=== PATIENT | male | born 1970 | race Caucasian/White ===

== ENCOUNTER 2019-01-27 11:28 | Inpatient (IN) | payer OTHER ==
[2019-01-27 11:58] LABS: #Basophils 0.1 thou/uL (0.0-0.2); #Lymphocytes 1.3 thou/uL (1.20-3.40); #Monocytes 0.9 thou/uL (0.11-0.59); #Neutrophils 14.6 thou/uL (1.40-6.50); %Basophils 0.3 % (0.0-1.0); %Eosinophils 0.2 % (0.0-10.0); %Lymphocytes 7.5 % (21.0-51.0); %Monocytes 5.1 % (0.0-10.0); %Neutrophils 86.9 % (42.0-75.0); Hemoglobin 15.7 g/dL (14.0-18.0); Mean Corpuscular HGB CONC 32.9 g/dL (32.0-36.0); Mean Corpuscular Hemoglobin 28.5 pg (27.0-31.0); Mean Corpuscular Volume 86.4 fL (78.0-98.0); PTT 23.1 SEC (22.9-36.1); Platelet Count 313 thou/uL (130-400); Prothrombin Time 13.2 SEC (12.0-14.7); RBC Distribution Width 11.9 % (11.5-14.5); Red Blood Cell (RBC) Count 5.53 mill/uL (4.70-6.10); White Blood Cell (WBC) Count 16.8 thou/uL (4.8-10.8)
[2019-01-27 12:14] LABS: ALT (SGPT) 42 U/L (8-55); AST (SGOT) 30 U/L (5-34); Albumin 4.1 g/dL (3.5-5.0); Alkaline Phosphatase 81 U/L (40-150); Anion Gap 13 mmol/L (10-20); BUN (Urea Nitrogen) 9 mg/dL (8.9-20.6); Bilirubin, Total 0.7 mg/dL (0.2-1.2); Calc. Creatinine Clearance 0 mL/min (70-130); Calcium 8.9 mg/dL (7.8-10.44); Carbon Dioxide 20 mmol/L (22-29); Chloride 105 mmol/L (98-107); Estimated GFR-MDRD Greater than 90; Globulin 3.1 g/dL (2.4-3.5); Glucose 286 mg/dL (70-105); Potassium 4.6 mmol/L (3.5-5.1); Protein, Total 7.2 g/dL (6.0-8.3); Sodium 133 mmol/L (136-145)
--- NOTE | 2019-01-27 12:25 | CT ---
CT angiogram head CT angiogram neck: 01/27/2019 at 12:01 PM COMPARISON: 01/27/2019 at 10:08 AM HISTORY: Persistent left facial droop and left-sided paralysis following TPA administration TECHNIQUE: Axial CT imaging at 5 mm intervals from vertex through skull base without contrast. Follow ing IV contrast administration, axial CT imaging is obtained at 1.25 mm intervals from the lung apices through the vertex with coronal and sagittal 3-D reformatted imaging FINDINGS: The noncontrast enhanced imaging demonstrates no intracranial hemorrhage, midline shift, or mass effect. The visualized osseous structures demonstrate no acute findings. The imaged lung apices are unremarkable. Origin of the innominate artery, right subclavian artery, right common carotid artery, left common ca rotid artery, and a left subclavian artery unremarkable. Origin of bilateral vertebral arteries is unremarkable. Bilateral vertebral arteries are patent. On the basis of NASCET criteria, there is no h emodynamically significant stenosis involving the common carotid artery or internal carotid artery on either side. The ICA bifurcation appears unremarkable bilaterally. The A1 segment and the distal JORI branches appe ar grossly unremarkable bilaterally. The M1 segment and the MCA bifurcation appears within normal limits bilaterally. No central arterial occlusion noted within the anterior circulation. Distal M2 branch occlusion cannot be excluded on the basis of CT angiogram and thus, MRI brain suggested as clinically warranted. IMPRESSION: No central arterial occlusion. MR brain advised if symptoms persist. Please see above dis cussion. Results called to Dr. Coe 12:20 PM 01/27/2019
[2019-01-27] MEDS ORDERED: ISOVUE-370 76%-LOCM 1 ML ONE (13:43)
[2019-01-27] MEDS ORDERED: HumaLOG 300 UNITS/3 ML VIAL SC PRN (14:21)
[2019-01-27] MEDS ORDERED: Dextrose 5% in Water 1,000 ML IV PRN ×2 (14:21→15:47)
[2019-01-27] MEDS ORDERED: Dextrose 50% Abboject 50 ML SYRINGE SLOW IVP PRN ×2 (14:21→15:47)
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
--- NOTE | 2019-01-27 14:58 | RAD ---
RIGHT SHOULDER 3 VIWS: HISTORY: Right shoulder pain. FINDINGS/IMPRESSION: There are degenerative changes in the acromioclavicular joint. No fracture, dislocation, or bony lilo truction is identified. POS: OFF
--- NOTE | 2019-01-27 15:40 | CON ---
DATE OF CONSULTATION: 01/27/2019 SERVICE: Pulmonary Medicine. REASON FOR CONSULT: ICU patient. HISTORY OF PRESENT ILLNESS: The patient is a 49-year-old white male with past medical history significant for a stroke. He was in his usual state of health and in custody with group home. He started having left facial droop, and became increasingly sleepy. He stopped moving his left side. He was brought to the emergency department immediately. He was given tPA because he was inside of the window. Its administration was completed by 11 a.m. this morning. He made a very small improvement in his NIH scale over the past couple of hours. He cannot provide any additional elements of the history. That being said, he indicates that as of this morning, he was in his usual state of health when this event occurred. PAST MEDICAL HISTORY: 1. Type 2 diabetes mellitus. 2. Hypertension. 3. COPD. 4. Coronary artery disease. 5. History of CVA. 6. Bipolar disorder. PAST SURGICAL HISTORY: Unknown. SOCIAL HISTORY: Negative for current alcohol, tobacco, or illicit drug use. He is currently in custody with the [employer]. FAMILY HISTORY: Noncontributory. ALLERGIES: OPIATES. MEDICATIONS: A list of his inpatient medications was reviewed. No specific updates were made at this time. REVIEW OF SYSTEMS: General; head, eyes, ears nose, and throat; cardiovascular, respiratory, GI, , musculoskeletal, neurologic, and skin are negative, except as mentioned in the HPI. PHYSICAL EXAMINATION: VITAL SIGNS: Afebrile, pulse 92, blood pressure 137/63, respirations 18, saturation 98%, currently on room air. GENERAL: The patient is somnolent. When I went into the room, he was sleeping. With gentle stimulation, he wakes up and follows all commands. Left without stimulation, after about 15 seconds, he will drift back off to sleep. HEENT: Normocephalic and atraumatic. Sclerae white. Conjunctivae pink. Oral mucosa is moist without lesions. LUNGS: Decent air entry. There is no prolonged expiratory phase, wheezing, crackles or rhonchi. HEART: Normal rate and regular. ABDOMEN: Soft, nontender, nondistended. Bowel sounds are positive. MUSCULOSKELETAL: No cyanosis or clubbing. No pitting in the bilateral lower extremities. He has findings consistent with psoriasis. NEUROLOGICAL: Grossly nonfocal. LABORATORY DATA: WBC 16.8, hemoglobin 15.7, platelets 313,000. INR 1.0. Basic metabolic profile and liver function studies are unremarkable. Troponin is gently uptrending to 0.117. IMAGING STUDIES: 1. CT brain demonstrates no acute intracranial hemorrhage or mass effect. That being said, there is subtle hypoattenuation of the internal capsule on the right. 2. CT of the C-spine demonstrates no acute osseous abnormality or subluxation. 3. CT of the [place] with contrast demonstrates no central arterial occlusion. ASSESSMENT: 1. Acute cerebrovascular accident with dense left-sided hemiplegia and minimally depressed mentation. 2. Type 2 diabetes mellitus. 3. Chronic obstructive pulmonary disease without current exacerbation. DISCUSSION AND PLAN: We will add nebs to be used on a p.r.n. basis. We will provide him with sliding scale insulin. I will keep him n.p.o., but he will need some IV fluids as he is not going to be able to tolerate any p.o. Stroke team has been called to evaluate the patient. Pulmonary/Critical Care will continue to follow along in this location. He is protecting his airway beautifully at this point, so advanced airway protection is not currently indicated. 70 minutes have been devoted to this patient in various activities. I personally reviewed all imaging studies and laboratory data noted within this document. For fifty percent of this time, I was interacting with the patient at the bedside or coordinating care with the care team. For the remainder of the time I was immediately available to the patient in the hospital unit. Job ID: [id number] MTDD
[2019-01-27] MEDS ORDERED: Nitroglycerin 0.4 MG TAB (25 Tab Bottle) SL PRN (15:47)
[2019-01-27] MEDS ORDERED: Sodium Chloride 0.65% Nasal 44 ML BOT EA NARE PRN (15:47)
[2019-01-27] MEDS ORDERED: Labetalol HCl 100 MG/20 ML VIAL SLOW IVP PRN ×2 (15:47)
[2019-01-27] MEDS ORDERED: Insulin Regular 300 UNITS/3 ML VIAL SC PRN (15:47)
[2019-01-27] MEDS ORDERED: niCARdipine 25 MG in Sodium Chloride 0.9% 250 ML 240 ML IVPB PRN (15:47)
[2019-01-27] MEDS ORDERED: Communication Order-Pharmacy FS SCH (15:47)
[2019-01-27] MEDS ORDERED: hydrALAZINE 20 MG/ML VIAL SLOW IVP PRN (15:47)
[2019-01-27] MEDS ORDERED: Artificial Tears 18 DROP/0.9 ML EA EYE PRN (15:47)
[2019-01-27] MEDS ORDERED: Ondansetron PF 4 MG/2 ML Vial IVP PRN (15:47)
[2019-01-27] MEDS ORDERED: Bisacodyl 10 MG SUPP PR PRN (15:47)
[2019-01-27] MEDS: Sodium Chloride 0.9% 1,000 ML IV SCH (16:32)
[2019-01-27] MEDS: Acetaminophen 650 MG Suppository PR PRN ×2 (17:33→21:50)
[2019-01-27] MEDS: Budesonide 0.5 MG/2 ML NEB INH SCH (18:53)
[2019-01-27 20:58] LABS: Bacteria/HPF None Seen HPF (None Seen); Bilirubin Negative (Negative); Blood, Urine Negative (Negative); Clarity Clear (Clear); Glucose, Urine (Dipstick) Greater than 1000 mg/dL (Negative); Leukocyte Negative Leu/uL (Negative); Nitrite Negative (Negative); Protein, Urine (Dipstick) 30 mg/dL (Neg-Trace); RBC/HPF 0-3 HPF (0-3); Squamous Epithelial None Seen HPF (0-3); Urobilinogen Normal mg/dL (Less than 2); WBC/HPF 0-3 HPF (0-3)
[2019-01-27 21:07] LABS: Amphetamine Not Detected (NotDetected); Barbiturates Screen Not Detected (NotDetected); Benzodiazepine Screen Not Detected (NotDetected); Cocaine Metabolite Screen Not Detected (NotDetected); Medtox Control Line Valid? VALID (VALID); Medtox Reader # READER 4; Methadone Not Detected (NotDetected); Methamphetamine Not Detected (NotDetected); Opiate Screen Not Detected (NotDetected); Oxycodone Screen Not Detected (NotDetected); Phencyclidine (PCP) Not Detected (NotDetected); THC/Cannabinoid Screen Not Detected (NotDetected); Tricyclic Screen Not Detected (NotDetected)
[2019-01-28] MEDS: Sodium Chloride 0.9% 1,000 ML IV SCH ×2 (00:14→09:12)
[2019-01-28] MEDS: Atorvastatin Calcium 40 MG TAB PO SCH ×2 (00:14→21:20)
[2019-01-28] MEDS: Insulin Regular 300 UNITS/3 ML VIAL SC PRN ×4 (02:44→18:47)
[2019-01-28] MEDS: Budesonide 0.5 MG/2 ML NEB INH SCH ×2 (07:12→18:35)
--- NOTE | 2019-01-28 07:33 | CT ---
CT HEAD NONCONTRAST: COMPARISON: Previous day. INDICATION: CVA. FINDINGS: There is stable subtle hypoattenuation localizing to the posterior limb right internal capsule. The ventricular system is normal in size. No acute intracranial hemorrhage or mass effect. IMPRESSION: 1. No interval acute intracranial abnormality. 2. Stable appearance to previous day. POS: GAIL
[2019-01-28] MEDS: Pantoprazole 40 MG VIAL IVP SCH (09:12)
[2019-01-28 11:00] LABS: #Lymphocytes 2.1 thou/uL (1.20-3.40); #Monocytes 0.8 thou/uL (0.11-0.59); #Neutrophils 8.6 thou/uL (1.40-6.50); %Basophils 0.3 % (0.0-1.0); %Eosinophils 0.3 % (0.0-10.0); %Lymphocytes 17.8 % (21.0-51.0); %Monocytes 6.9 % (0.0-10.0); %Neutrophils 74.7 % (42.0-75.0); Hemoglobin 15.4 g/dL (14.0-18.0); Mean Corpuscular HGB CONC 33.4 g/dL (32.0-36.0); Mean Corpuscular Hemoglobin 29.3 pg (27.0-31.0); Mean Corpuscular Volume 87.6 fL (78.0-98.0); Mean Platelet Volume 6.8 fL (7.4-10.4); Platelet Count 335 thou/uL (130-400); RBC Distribution Width 12.5 % (11.5-14.5); Red Blood Cell (RBC) Count 5.26 mill/uL (4.70-6.10); White Blood Cell (WBC) Count 11.5 thou/uL (4.8-10.8)
--- NOTE | 2019-01-28 11:13 | PDOC.PN ---
- Subjective Encounter Start Date: 01/28/19 Encounter Start Time: 10:30 -: old records requested/rev Patient seen and examined. pt has slurred speech, No overnight events - Objective Resuscitation Status - Order Detail: 01/27/19 13:12 Resuscitation Status Routine Resuscitation Status: FULL: Full Resuscitation MAR Reviewed: Yes Vital Signs & Weight: Vital Signs (12 hours) Temp Pulse Resp BP Pulse Ox 01/28/19 08:00 100 01/28/19 07:13 96 01/28/19 07:11 100 22 H 96 01/28/19 07:00 98.5 F 01/28/19 03:00 98.6 F 01/28/19 02:05 102 H 183/149 H 01/28/19 01:14 100 15 97 Weight Weight 257 lb 15.053 oz Most Recent Monitor Data Heart Rate from ECG 102 NIBP 100/48 NIBP BP-Mean 65 Respiration from ECG 5 SpO2 96 I&O: 01/27/19 01/28/19 01/29/19 06:59 06:59 06:59 Intake Total 1552 Output Total 3600 625 Balance -2048 -625 Result Diagrams: 01/28/19 10:52 01/27/19 11:38 Additional Labs: Accuchecks 01/28/19 01/28/19 01/27/19 06:41 02:38 15:59 POC Glucose 206 H 196 H 179 H Radiology Reviewed by me: Yes (CT brain noted) EKG Reviewed by me: Yes (nsr) Phys Exam - Physical Examination Constitutional: NAD HEENT: PERRLA, moist MMs, sclera anicteric Neck: no JVD, supple fascial droop Respiratory: no wheezing, no rales, no rhonchi Cardiovascular: RRR, no significant murmur, no rub Gastrointestinal: soft, non-tender, no distention, positive bowel sounds obesity+ Musculoskeletal: no edema, pulses present left side weakness Lymphatic: no nodes Psychiatric: normal affect Skin: no rash, normal turgor Dx/Plan (1) Acute right MCA stroke Code(s): I63.511 - CEREB INFRC D/T UNSP OCCLS OR STENOS OF RIGHT MID CEREB ART Status: Acute (2) Received intravenous tissue plasminogen activator (tPA) within last 24 hours Code(s): TJQ0880 - Status: Acute (3) Anxiety and depression Code(s): F41.9 - ANXIETY DISORDER, UNSPECIFIED; F32.9 - MAJOR DEPRESSIVE DISORDER, SINGLE EPISODE, UNSPECIFIED Status: Chronic (4) CAD (coronary artery disease) Code(s): I25.10 - ATHSCL HEART DISEASE OF [place] CORONARY ARTERY W/O ANG PCTRS Status: Chronic (5) COPD (chronic obstructive pulmonary disease) Status: Chronic (6) Diabetes type 2, controlled Code(s): E11.9 - TYPE 2 DIABETES MELLITUS WITHOUT COMPLICATIONS Status: Chronic (7) Dyslipidemia Code(s): E78.5 - HYPERLIPIDEMIA, UNSPECIFIED Status: Chronic (8) GERD (gastroesophageal reflux disease) Code(s): K21.9 - GASTRO-ESOPHAGEAL REFLUX DISEASE WITHOUT ESOPHAGITIS Status: Chronic (9) Hypertension Code(s): I10 - ESSENTIAL (PRIMARY) HYPERTENSION Status: Chronic (10) Obesity (BMI 30-39.9) Code(s): E66.9 - OBESITY, UNSPECIFIED Status: Chronic - Plan cont current plan of care, PT/OT, director of social media marketing, speech therapy * start diet after speech evaluation * resume selected home meds * medication reviewed as below * symptomatic treatment * stroke team evaluation * possible transfer to stroke floor. * continue IVF Review of Systems - Review of Systems Eyes: negative: Pain, Vision Change, Conjunctivae Inflammation, Eyelid Inflammation, Redness, Other ENT: negative: Ear Pain, Ear Discharge, Nose Pain, Nose Discharge, Nose Congestion, Mouth Pain, Mouth Swelling, Throat Pain, Throat Swelling, Other Respiratory: negative: Cough, Dry, Shortness of Breath, Hemoptysis, SOB with Excertion, Pleuritic Pain, Sputum, Wheezing Cardiovascular: negative: chest pain, palpitations, orthopnea, paroxysmal nocturnal dyspnea, edema, light headedness, other Gastrointestinal: negative: Nausea, Vomiting, Abdominal Pain, Diarrhea, Constipation, Melena, Hematochezia, Other Genitourinary: negative: Dysuria, Frequency, Incontinence, Hematuria, Retention , Other Musculoskeletal: negative: Neck Pain, Shoulder Pain, Arm Pain, Back Pain, Hand Pain, Leg Pain, Foot Pain, Other Skin: negative: Rash, Lesions, Mathew, Bruising, Other Neurological: Weakness, Change in Speech. negative: Numbness, Incoordination, Confusion, Seizures, Other - Medications/Allergies Allergies/Adverse Reactions: Allergies Allergy/AdvReac Type Severity Reaction Status Date / Time Opioids - Morphine Analogues Allergy Unverified 01/27/19 14:24 Medications: Current Medications Acetaminophen (Tylenol) 650 mg PA Q4H PRN PRN Reason: Headache/Fever/Mild Pain (1-3) Last Admin: 01/27/19 21:50 Dose: 650 mg Albuterol/Ipratropium (Duoneb) 3 ml NEB [id number] PRN PRN Reason: SOB &/or Wheezing Albuterol/Ipratropium (Duoneb) 3 ml NEB [id number] MAURA Last Admin: 01/28/19 07:11 Dose: 3 ml Artificial Tears (Tears Naturale) 2 drop EA EYE PRN PRN PRN Reason: Dry Eyes Aspirin (Aspirin) 300 mg PA HS MAURA Atorvastatin Calcium (Lipitor) 40 mg PO HS MAURA Last Admin: 01/28/19 00:14 Dose: Not Given Bisacodyl (Dulcolax) 10 mg PA DAILYPRN PRN PRN Reason: Constipation Budesonide (Pulmicort Neb Solution) 0.5 mg INH BID-RT MAURA Last Admin: 01/28/19 07:12 Dose: 0.5 mg Dextrose/Water (Dextrose 50%) 25 gm SLOW IVP PRN PRN PRN Reason: Hypoglycemia Enoxaparin Sodium (Lovenox) 40 mg SC 0900 MAURA Glucagon (Glucagon) 1 mg IM PRN PRN PRN Reason: Hypoglycemia Hydralazine HCl (Apresoline) 10 mg SLOW IVP Q4H PRN PRN Reason: SBP > 180 and HR < 70 Sodium Chloride (Normal Saline 0.9%) 1,000 mls @ 100 mls/hr IV .Q10H MAURA Last Admin: 01/28/19 09:12 Dose: 1,000 mls Dextrose/Water (D5w) 1,000 mls @ 0 mls/hr IV .Q0M PRN PRN Reason: Hypoglycemia Nicardipine HCl 25 mg/ Sodium (Chloride) 250 mls @ 0 mls/hr IVPB INF PRN; Protocol PRN Reason: SBP > 180 or DBP > 105 Insulin Human Regular (Humulin R) 0 units SC .MODERATE SLIDING SC PRN PRN Reason: Moderate Correctional Scale Last Admin: 01/28/19 06:40 Dose: 4 unit Insulin Human Regular (Humulin R) 0 units SC .BEDTIME SLIDING SC PRN PRN Reason: Bedtime Correctional Scale Labetalol HCl (Normodyne) 10 mg SLOW IVP Q2H PRN PRN Reason: SBP > 180 or DBP > 105 Labetalol HCl (Normodyne) 20 mg SLOW IVP Q4H PRN PRN Reason: SBP > 180 and HR >/= 70 Last Admin: 01/28/19 02:05 Dose: 20 mg Miscellaneous Information (Communication Order-Pharmacy) 1 each FS NOW [facility] Stop: 01/28/19 15:45 Last Admin: 01/27/19 21:50 Dose: 1 each Nitroglycerin (Nitrostat) 0.4 mg SL Q5MIN PRN PRN Reason: Chest Pain Ondansetron HCl (Zofran) 4 mg IVP Q6H PRN PRN Reason: Nausea/Vomiting Pantoprazole Sodium (Protonix) 40 mg IVP DAILY [facility] Last Admin: 01/28/19 09:12 Dose: 40 mg Sodium Chloride ([place] Nasal [place] 0.65%) 0 ml EA NARE QIDPRN PRN PRN Reason: Nasal Congestion
[2019-01-28 11:16] LABS: Hemoglobin A1c 11.1 % (4.0-6.0)
[2019-01-28 11:25] LABS: ALT (SGPT) 32 U/L (8-55); AST (SGOT) 17 U/L (5-34); Alkaline Phosphatase 67 U/L (40-150); Anion Gap 14 mmol/L (10-20); BUN (Urea Nitrogen) 10 mg/dL (8.9-20.6); Bilirubin, Total 1.1 mg/dL (0.2-1.2); Calc. Creatinine Clearance 178 mL/min (70-130); Calcium 9.1 mg/dL (7.8-10.44); Carbon Dioxide 19 mmol/L (22-29); Chloride 105 mmol/L (98-107); Cholesterol 118 mg/dl (< 200 Desired); Estimated GFR-MDRD Greater than 90; Globulin 3.2 g/dL (2.4-3.5); Glucose 268 mg/dL (70-105); HDL Cholesterol 39 mg/dL (>60 Neg Risk); LDL Cholesterol, Calculated 52 mg/dL; Potassium 4.7 mmol/L (3.5-5.1); Protein, Total 7.2 g/dL (6.0-8.3); Sodium 133 mmol/L (136-145); Triglycerides 134 mg/dL (Less than 150)
[2019-01-28 11:57] VITALS: BMI 38.0
--- NOTE | 2019-01-28 13:02 | PRG ---
DATE OF SERVICE: 01/28/2019 SERVICE: Pulmonary Medicine. INTERVAL HISTORY: The patient is doing fine from respiratory standpoint. He is breathing comfortably. He has no complaints of fevers, chills, nausea, vomiting, or diarrhea. There are no significant overnight events. Neurologically, things have not improved much compared to yesterday, though he is a little less sleepy today. PHYSICAL EXAMINATION: VITAL SIGNS: Afebrile, pulse 97, blood pressure 100/48, respirations 20, saturation 95% on room air. GENERAL: The patient is awake and alert, in no apparent distress. LUNGS: Decent air entry. There is no prolonged expiratory phase or wheezing present. No rhonchi or crackles are appreciated. HEART: Normal rate, regular. ABDOMEN: Soft, nontender, nondistended. Bowel sounds are positive. MUSCULOSKELETAL: No cyanosis or clubbing. There is no pitting in the bilateral lower extremities. NEUROLOGIC: Dense hemiplegia on the left is present. He has decreased sensation there. He has left facial droop. LABORATORY DATA: WBC 11.5, hemoglobin 15.4, platelets 335,000. INR 1.0. Hemoglobin A1c 11.1. Urine drug screen is unremarkable. IMAGING: CT of the brain demonstrates no interval acute intracranial abnormality. Stable appearance compared to the prior day. ASSESSMENT: 1. Cerebrovascular accident with dense left-sided hemiplegia, status post tPA. 2. Type 2 diabetes mellitus. 3. Chronic obstructive lung disease without current exacerbation. DISCUSSION AND PLAN: The patient is stable for transition out of the ICU to the stroke unit. We will continue with speech pathology, physical therapy, and occupational therapy. If he cannot swallow within a couple of days, feeding tube and/or PEG tube will need to be considered. When he leaves the ICU, he will have no further requirements for inpatient Pulmonary or Critical Care opinion, and I will sign off. Please call with additional questions or concerns through time. Job ID: [id number]
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
--- NOTE | 2019-01-28 16:26 | MRI ---
BRAIN MRI NONCONTRAST: 01/28/19 CLINICAL HISTORY: Fall with left sided weakness. Reference made to head CT from same date. FINDINGS: There is no evidence of acute territorial infarction, mass effect, midline shift, or ventriculomegaly . There are perivascular spaces of the right basal ganglia accounting from hypodensity on preceding C T exams. No hemorrhagic susceptibility is present, intracranially. The skull base flow voids are main tained. There is mucosa thickening of the paranasal sinuses. IMPRESSION: No acute intracranial abnormalities. POS: Lesli
[2019-01-28] MEDS ORDERED: Aspirin 81 mg Enteric Coated Tablet PO SCH (20:45)
[2019-01-28] MEDS ORDERED: Aspirin 300 MG Suppository PR SCH (21:00)
[2019-01-28] MEDS: Metoprolol Tartrate 50 MG TAB PO SCH (21:21)
[2019-01-29] MEDS: Insulin Regular 300 UNITS/3 ML VIAL SC PRN ×2 (00:44→05:57)
[2019-01-29] MEDS: Sodium Chloride 0.9% 1,000 ML IV SCH (03:22)
[2019-01-29] MEDS: Budesonide 0.5 MG/2 ML NEB INH SCH (06:40)
[2019-01-29] MEDS: Metoprolol Tartrate 50 MG TAB PO SCH (08:07)
[2019-01-29] MEDS: Pantoprazole 40 MG VIAL IVP SCH (08:24)
[2019-01-29 08:34] VITALS: TEMP 98.2
[2019-01-29] MEDS ORDERED: Enoxaparin Sodium 40 MG/0.4 ML SYRINGE SC SCH (09:00)
[2019-01-29] MEDS ORDERED: Aspirin 81 mg Enteric Coated Tablet PO SCH (09:00)
--- NOTE | 2019-01-29 10:14 | PRG ---
DATE OF SERVICE: 01/29/2019 SERVICE: Pulmonary Medicine. INTERVAL HISTORY: The patient is doing fine from respiratory standpoint. He is breathing comfortably. He does not have any shortness of breath or cough. His NIH is stable, if not slightly improved. He has no complaints of chest pain, nausea , vomiting, fevers, or chills. PHYSICAL EXAMINATION: VITAL SIGNS: Afebrile, pulse 82, respirations 18, saturation 99% on room air, and blood pressure 148/72. HEENT: Normocephalic and atraumatic. Sclerae are white. Conjunctivae pink. Oral mucosa is moist and without lesions. LUNGS: Decent air entry. There is no prolonged expiratory phase or wheezing present. HEART: Normal rate and regular. ABDOMEN: Soft, nontender, and nondistended. Bowel sounds are positive. MUSCULOSKELETAL: No cyanosis or clubbing. No pitting in the bilateral lower extremities. NEUROLOGIC: He has a dense left-sided hemiplegia still present. IMAGING STUDIES: Echocardiogram demonstrates normal ejection fraction. There is some diastolic dysfunction. Mild valvular abnormalities are appreciated. MRI of the brain demonstrates no acute intracranial abnormality. ASSESSMENT: 1. Malingering with stroke symptoms. 2. Type 2 diabetes mellitus. 3. Chronic obstructive pulmonary disease without current exacerbation. DISCUSSION AND PLAN: I will interrupt the IV fluids. The patient is stable for transition out of the hospital today. At this point, there are no further requirements for inpatient Pulmonary Critical Care opinion and I will sign off. Please call with additional questions or concerns through time. Job ID: [id number] MTDD
--- NOTE | 2019-01-29 11:33 | DIS ---
DATE OF ADMISSION: 01/27/2019 DATE OF DISCHARGE: 01/29/2019 PRIMARY CARE PHYSICIAN: [facility] Call admission. DISCHARGE DISPOSITION: Alf. PRIMARY DISCHARGE DIAGNOSES: 1. Malingering with left-sided weakness and slurred speech. 2. Ruled out cerebrovascular accident (no cerebrovascular accident). SECONDARY DISCHARGE DIAGNOSES: Anxiety and depression, coronary artery disease, chronic obstructive pulmonary disease, diabetes type 2, dyslipidemia, gastroesophageal reflux disease, obesity, and hypertension. PRIMARY PROCEDURE/OPERATION: None. RADIOLOGICAL INVESTIGATION: CT pilot station of [place] x2, negative for any occlusion. Shoulder x-ray, negative for any fracture. Repeat CT brain was negative. MRI brain came back normal. Echocardiography was unremarkable. SIGNIFICANT LABORATORY DATA: Hemoglobin 15.4. INR 1.0. Creatinine 0.85. LFT normal. Urinalysis unremarkable. Urine drug screen negative. DISCHARGE MEDICATIONS: The patient will continue all his previous medication. 1. Proventil 1 inhalation q.i.d. 2. Lipitor 20 mg daily. 3. Colace 100 mg p.o. b.i.d. 4. Flovent inhalation b.i.d. 5. Lasix 40 mg b.i.d. 6. Imdur 60 mg daily. 7. Lisinopril 40 mg p.o. daily. 8. Metformin 1000 mg p.o. b.i.d. 9. Metoprolol tartrate 50 mg p.o. b.i.d. 10. Omeprazole 20 mg b.i.d. 11. Potassium chloride 10 mEq p.o. daily. 12. Zoloft 50 mg p.o. at bedtime. 13. Simethicone 80 mg p.o. after meals and at bedtime. 14. Spiriva 18 mcg inhalation daily. 15. Nitroglycerin 0.4 mg sublingual p.r.n. for chest pain. CONTRAINDICATION: None. CODE STATUS: Full code. INPATIENT BOILERMAKER WELDER: Pulmonary group was following because the patient was admitted in CCU. Neurologist was consulted while in hospital. TEST RESULTS PENDING ON DISCHARGE: None. ALLERGIES: OPIOID AND MORPHINE. DISCHARGE PLAN: Posthospital, the patient is planned for discharge to custodial. HOSPITAL COURSE: A 49-year-old male, who was admitted by ia. This patient was initially evaluated at [facility], where he presented with left-sided upper and lower extremity weakness and slurred speech. He was malingering as if real and he had a CT pilot station of [place], which was motion artifact and CT brain was negative. He was given tPA, which he finished on the route when he was transferred to our emergency room. He continued to have weakness on the left side and that is why CT pilot station of [place] was repeated, that did not show any occlusion. As the patient received tPA, he was admitted to the hospital. We observed post tPA protocol order and repeat CT brain was negative. An MRI also came back negative and his echocardiography was also unremarkable. Neurology saw this patient. Pulmonary group saw this patient. Neurology was thinking that this patient has malingering with symptoms. We have completely excluded stroke in this particular patient. When we told him that he does not have any stroke, he started walking and his speech was also improved. For this patient, we have concluded that this patient does not have any stroke and he was malingering and he has no weakness anymore. He is stable to go back to custodial today. I have seen and examined the patient at bedside today. His vitals are stable. His examination is unremarkable. He is moving all 4 limbs. His speech is improved. The patient will continue all his previous medication at custodial. Job ID: [id number]
--- NOTE | 2019-01-29 12:20 | PDOC.PN ---
- Subjective Encounter Start Date: 01/29/19 Encounter Start Time: 10:00 Patient seen and examined. No new complaints. No overnight events - Objective Resuscitation Status - Order Detail: 01/27/19 13:12 Resuscitation Status Routine Resuscitation Status: FULL: Full Resuscitation MAR Reviewed: Yes Vital Signs & Weight: Vital Signs (12 hours) Temp Pulse Resp Pulse Ox 01/29/19 08:00 98.2 F 93 L 01/29/19 06:42 96 01/29/19 06:40 85 24 H 96 Weight Admit Weight 257 lb 15.053 oz Weight 257 lb 15.053 oz Most Recent Monitor Data Heart Rate from ECG 85 NIBP 109/86 NIBP BP-Mean 93 Respiration from ECG 21 SpO2 94 I&O: 01/28/19 01/29/19 01/30/19 06:59 06:59 06:59 Intake Total 1552 1207 200 Output Total 3600 3675 Balance -3678 -3899 200 Result Diagrams: 01/28/19 10:52 01/28/19 10:52 Additional Labs: Accuchecks 01/29/19 01/29/19 01/28/19 05:54 00:45 18:42 POC Glucose 221 H 240 H 217 H 01/28/19 13:23 POC Glucose 227 H EKG Reviewed by me: Yes Phys Exam - Physical Examination Constitutional: NAD HEENT: PERRLA, moist MMs, sclera anicteric Neck: no JVD, supple Respiratory: no wheezing, no rales, no rhonchi Cardiovascular: RRR, no significant murmur, no rub Gastrointestinal: soft, non-tender, no distention, positive bowel sounds Musculoskeletal: no edema, pulses present Neurological: non-focal, normal sensation, moves all 4 limbs Psychiatric: normal affect, A&O x 3 Skin: no rash, normal turgor Dx/Plan (1) Malingering Code(s): Z76.5 - MALINGERER [CONSCIOUS SIMULATION] Status: Acute (2) Anxiety and depression Code(s): F41.9 - ANXIETY DISORDER, UNSPECIFIED; F32.9 - MAJOR DEPRESSIVE DISORDER, SINGLE EPISODE, UNSPECIFIED Status: Chronic (3) CAD (coronary artery disease) Code(s): I25.10 - ATHSCL HEART DISEASE OF [place] CORONARY ARTERY W/O ANG PCTRS Status: Chronic (4) COPD (chronic obstructive pulmonary disease) Status: Chronic (5) Diabetes type 2, controlled Code(s): E11.9 - TYPE 2 DIABETES MELLITUS WITHOUT COMPLICATIONS Status: Chronic (6) Dyslipidemia Code(s): E78.5 - HYPERLIPIDEMIA, UNSPECIFIED Status: Chronic (7) GERD (gastroesophageal reflux disease) Code(s): K21.9 - GASTRO-ESOPHAGEAL REFLUX DISEASE WITHOUT ESOPHAGITIS Status: Chronic (8) Hypertension Code(s): I10 - ESSENTIAL (PRIMARY) HYPERTENSION Status: Chronic (9) Obesity (BMI 30-39.9) Code(s): E66.9 - OBESITY, UNSPECIFIED Status: Chronic - Plan cont current plan of care * medication reviewed as below * symptomatic treatment * see discharge summery. Review of Systems - Review of Systems ENT: negative: Ear Pain, Ear Discharge, Nose Pain, Nose Discharge, Nose Congestion, Mouth Pain, Mouth Swelling, Throat Pain, Throat Swelling, Other Respiratory: negative: Cough, Dry, Shortness of Breath, Hemoptysis, SOB with Excertion, Pleuritic Pain, Sputum, Wheezing Cardiovascular: negative: chest pain, palpitations, orthopnea, paroxysmal nocturnal dyspnea, edema, light headedness, other Gastrointestinal: negative: Nausea, Vomiting, Abdominal Pain, Diarrhea, Constipation, Melena, Hematochezia, Other Genitourinary: negative: Dysuria, Frequency, Incontinence, Hematuria, Retention , Other Musculoskeletal: negative: Neck Pain, Shoulder Pain, Arm Pain, Back Pain, Hand Pain, Leg Pain, Foot Pain, Other - Medications/Allergies Allergies/Adverse Reactions: Allergies Allergy/AdvReac Type Severity Reaction Status Date / Time Opioids - Morphine Analogues Allergy Unverified 01/27/19 14:24 Medications: Current Medications Acetaminophen (Tylenol) 650 mg ID Q4H PRN PRN Reason: Headache/Fever/Mild Pain (1-3) Last Admin: 01/27/19 21:50 Dose: 650 mg Albuterol/Ipratropium (Duoneb) 3 ml NEB [id number] PRN PRN Reason: SOB &/or Wheezing Albuterol/Ipratropium (Duoneb) 3 ml NEB [id number] MAURA Last Admin: 01/29/19 06:40 Dose: 3 ml Artificial Tears (Tears Naturale) 2 drop EA EYE PRN PRN PRN Reason: Dry Eyes Aspirin (Ecotrin) 81 mg PO DAILY [facility] Last Admin: 01/29/19 08:07 Dose: 81 mg Atorvastatin Calcium (Lipitor) 40 mg PO HS [facility] Last Admin: 01/28/19 21:20 Dose: 40 mg Bisacodyl (Dulcolax) 10 mg ID DAILYPRN PRN PRN Reason: Constipation Budesonide (Pulmicort Neb Solution) 0.5 mg INH BID-RT [facility] Last Admin: 01/29/19 06:40 Dose: 0.5 mg Dextrose/Water (Dextrose 50%) 25 gm SLOW IVP PRN PRN PRN Reason: Hypoglycemia Enoxaparin Sodium (Lovenox) 40 mg SC 0900 [facility] Last Admin: 01/29/19 08:24 Dose: 40 mg Glucagon (Glucagon) 1 mg IM PRN PRN PRN Reason: Hypoglycemia Hydralazine HCl (Apresoline) 10 mg SLOW IVP Q4H PRN PRN Reason: SBP > 180 and HR < 70 Dextrose/Water (D5w) 1,000 mls @ 0 mls/hr IV .Q0M PRN PRN Reason: Hypoglycemia Insulin Human Regular (Humulin R) 0 units SC .MODERATE SLIDING SC PRN PRN Reason: Moderate Correctional Scale Last Admin: 01/29/19 05:57 Dose: 4 unit Insulin Human Regular (Humulin R) 0 units SC .BEDTIME SLIDING SC PRN PRN Reason: Bedtime Correctional Scale Labetalol HCl (Normodyne) 10 mg SLOW IVP Q2H PRN PRN Reason: SBP > 180 or DBP > 105 Labetalol HCl (Normodyne) 20 mg SLOW IVP Q4H PRN PRN Reason: SBP > 180 and HR >/= 70 Last Admin: 01/28/19 02:05 Dose: 20 mg Metoprolol Tartrate (Lopressor) 50 mg PO BID [facility] Last Admin: 01/29/19 08:07 Dose: 50 mg Nitroglycerin (Nitrostat) 0.4 mg SL Q5MIN PRN PRN Reason: Chest Pain Ondansetron HCl (Zofran) 4 mg IVP Q6H PRN PRN Reason: Nausea/Vomiting Pantoprazole Sodium (Protonix) 40 mg IVP DAILY [facility] Last Admin: 01/29/19 08:24 Dose: 40 mg Sodium Chloride (Fowler Nasal [place] 0.65%) 0 ml EA NARE QIDPRN PRN PRN Reason: Nasal Congestion Sodium Chloride (Flush - Normal Saline) 10 ml IVF Q12HR MAURA Last Admin: 01/29/19 08:24 Dose: 10 ml Sodium Chloride (Flush - Normal Saline) 10 ml IVF PRN PRN PRN Reason: Saline Flush
[2019-01-29 22:32] VITALS: BP 130/88
== END 2019-01-29 13:28 | DRG 951 ==
LOC: ERS 11:28 → CCU 12:32
PROVIDERS: ADMIT Internal Medicine; ATTEND Internal Medicine
DX: Z76.5 Malingerer [conscious simulation] (principal); G81.94 Hemiplegia, unspecified affecting left nondominant side; I50.32 Chronic diastolic (congestive) heart failure; J43.9 Emphysema, unspecified; I25.10 Atherosclerotic heart disease of native coronary artery without angina pectoris; F31.9 Bipolar disorder, unspecified; E78.5 Hyperlipidemia, unspecified; K21.9 Gastro-esophageal reflux disease without esophagitis; I11.0 Hypertensive heart disease with heart failure; F41.9 Anxiety disorder, unspecified; E11.9 Type 2 diabetes mellitus without complications; Z88.8 Allergy status to other drugs, medicaments and biological substances; Z79.899 Other long term (current) drug therapy; Z79.51 Long term (current) use of inhaled steroids; Z92.82 Status post administration of tPA (rtPA) in a different facility within the last 24 hours prior to admission to current facility; Z88.5 Allergy status to narcotic agent; Z79.4 Long term (current) use of insulin; Z68.38 Body mass index [BMI] 38.0-38.9, adult
CPT/HCPCS: 36415; 36416; 70450; 70496; 70551; 80053; 80061; 80306; 81001; 83036; 84443; 85025; 93005; 93306; C9113; J1650; J1815; J7620; J7626; Q9966

== ENCOUNTER 2022-01-27 19:29 | Inpatient (IN) | payer OTHER ==
[~2022-01-27 19:29] MED LIST: Iopamidol-370 76% 500 ML 1 ML ONE
[2022-01-27 20:03] LABS: #Eosinphils 0.1 thou/uL (0.0-0.7); #Lymphocytes 2.4 thou/uL (1.20-3.40); #Monocytes 0.8 thou/uL (0.11-0.59); #Neutrophils 6.8 thou/uL (1.40-6.50); %Basophils 0.3 % (0.0-1.0); %Eosinophils 1.4 % (0.0-10.0); %Lymphocytes 23.7 % (21.0-51.0); %Monocytes 8.1 % (0.0-10.0); %Neutrophils 66.5 % (42.0-75.0); Hemoglobin 15.8 g/dL (14.0-18.0); Mean Corpuscular HGB CONC 33.1 g/dL (32.0-36.0); Mean Corpuscular Volume 90.8 fL (78.0-98.0); Mean Platelet Volume 7.1 fL (7.4-10.4); Platelet Count 340 thou/uL (130-400); RBC Distribution Width 11.9 % (11.5-14.5); Red Blood Cell (RBC) Count 5.27 mill/uL (4.70-6.10); White Blood Cell (WBC) Count 10.2 thou/uL (4.8-10.8)
[2022-01-27 20:13] LABS: PTT 25.7 sec (22.9-36.1); Prothrombin Time 13.6 sec (12.0-14.7)
[2022-01-27 20:15] LABS: ALT (SGPT) 27 U/L (8-55); AST (SGOT) 13 U/L (5-34); Alkaline Phosphatase 97 U/L (40-110); Anion Gap 14 mmol/L (10-20); BUN (Urea Nitrogen) 11 mg/dL (8.9-20.6); Bilirubin, Total 0.5 mg/dL (0.2-1.2); Calc. Creatinine Clearance 0 mL/min (70-130); Calcium 8.9 mg/dL (7.8-10.44); Carbon Dioxide 23 mmol/L (22-29); Chloride 104 mmol/L (98-107); Estimated GFR 107; Glucose 234 mg/dL (70-105); Potassium 4.2 mmol/L (3.5-5.1); Sodium 137 mmol/L (136-145)
[2022-01-27 22:26] LABS: SARS-CoV-2 NAA Rapid Test Not Detected (NotDetected)
[2022-01-28] MEDS ORDERED: Aspirin 300 MG Suppository ONE (00:45)
[2022-01-28] MEDS ORDERED: Acetaminophen 650 MG Suppository PR SCH (06:30)
[2022-01-28] MEDS ORDERED: hydrALAZINE 20 MG/ML VIAL SLOW IVP PRN (09:33)
[2022-01-28] MEDS ORDERED: Lorazepam 1 MG TAB PO PRN (12:28)
[2022-01-28] MEDS ORDERED: Dextrose 5% in Water 1,000 ML IV PRN (12:36)
[2022-01-28] MEDS ORDERED: Dextrose 50% Abboject 50 ML SYRINGE SLOW IVP PRN (12:36)
[2022-01-28] MEDS ORDERED: HumaLOG 300 UNITS/3 ML VIAL SC PRN (12:36)
[2022-01-28] MEDS ORDERED: NPH, Human Insulin Isophane 300 UNIT/3 ML VIAL SC SCH (12:45)
[2022-01-28 13:03] LABS: Hemoglobin A1c 10.1 % (4.0-6.0)
[2022-01-28] MEDS: Mometasone 100 MCG/PUFF (1 INHALER) INH SCH (18:49)
[2022-01-28] MEDS: Acetaminophen 650 MG Suppository PR PRN (19:28)
[2022-01-28] MEDS: Atorvastatin Calcium 40 MG TAB PO SCH (19:33)
[2022-01-28] MEDS: NPH, Human Insulin Isophane 300 UNIT/3 ML VIAL SC SCH (19:33)
[2022-01-28] MEDS: DULoxetine 30 MG CAP PO SCH (19:33)
[2022-01-29 05:01] LABS: #Basophils 0.1 thou/uL (0.0-0.2); #Eosinphils 0.2 thou/uL (0.0-0.7); #Lymphocytes 2.7 thou/uL (1.20-3.40); #Monocytes 0.9 thou/uL (0.11-0.59); %Basophils 0.7 % (0.0-1.0); %Eosinophils 2.2 % (0.0-10.0); %Lymphocytes 27.3 % (21.0-51.0); %Monocytes 8.7 % (0.0-10.0); %Neutrophils 61.1 % (42.0-75.0); Hemoglobin 16.1 g/dL (14.0-18.0); Mean Corpuscular HGB CONC 32.8 g/dL (32.0-36.0); Mean Corpuscular Hemoglobin 30.1 pg (27.0-31.0); Mean Corpuscular Volume 91.8 fL (78.0-98.0); Mean Platelet Volume 6.7 fL (7.4-10.4); Platelet Count 359 thou/uL (130-400); RBC Distribution Width 12.1 % (11.5-14.5); Red Blood Cell (RBC) Count 5.36 mill/uL (4.70-6.10); White Blood Cell (WBC) Count 9.9 thou/uL (4.8-10.8)
[2022-01-29 05:24] LABS: Anion Gap 17 mmol/L (10-20); BUN (Urea Nitrogen) 13 mg/dL (8.9-20.6); Calc. Creatinine Clearance 199 mL/min (70-130); Calcium 8.9 mg/dL (7.8-10.44); Carbon Dioxide 20 mmol/L (22-29); Cardiac Risk 2.5 (Less than 4.5); Chloride 104 mmol/L (98-107); Cholesterol 93 mg/dl (< 200 Desired); Estimated GFR 109; Glucose 227 mg/dL (70-105); HDL Cholesterol 37 mg/dL (>60 Neg Risk); LDL Cholesterol, Calculated 36 mg/dL; Potassium 4.1 mmol/L (3.5-5.1); Sodium 137 mmol/L (136-145); Triglycerides 98 mg/dL (Less than 150)
[2022-01-29] MEDS: HumaLOG 300 UNITS/3 ML VIAL SC PRN ×2 (05:59→12:43)
[2022-01-29] MEDS: Mometasone 100 MCG/PUFF (1 INHALER) INH SCH ×2 (06:46→19:15)
[2022-01-29] MEDS: Ipratropium Bromide 2.5 ml Neb NEB SCH ×3 (06:46→19:10)
[2022-01-29] MEDS: DULoxetine 60 MG CAP PO SCH ×2 (09:32→10:24)
[2022-01-29] MEDS: Ziprasidone 20 MG CAP PO SCH ×2 (09:32→10:18)
[2022-01-29] MEDS: Aspirin 81 mg Enteric Coated Tablet PO SCH ×2 (09:32→10:24)
[2022-01-29] MEDS: NPH, Human Insulin Isophane 300 UNIT/3 ML VIAL SC SCH ×2 (10:08→21:27)
[2022-01-29] MEDS: DULoxetine 30 MG CAP PO SCH (21:28)
[2022-01-29] MEDS: Atorvastatin Calcium 40 MG TAB PO SCH (21:28)
[2022-01-30] MEDS: Ipratropium Bromide 2.5 ml Neb NEB SCH ×5 (00:43→23:57)
[2022-01-30 04:26] LABS: #Basophils 0.1 thou/uL (0.0-0.2); #Eosinphils 0.3 thou/uL (0.0-0.7); #Lymphocytes 2.5 thou/uL (1.20-3.40); #Monocytes 0.8 thou/uL (0.11-0.59); %Basophils 0.7 % (0.0-1.0); %Eosinophils 2.9 % (0.0-10.0); %Monocytes 7.7 % (0.0-10.0); %Neutrophils 65.7 % (42.0-75.0); Hemoglobin 17.5 g/dL (14.0-18.0); Mean Corpuscular HGB CONC 33.1 g/dL (32.0-36.0); Mean Corpuscular Hemoglobin 30.5 pg (27.0-31.0); Mean Corpuscular Volume 92.2 fL (78.0-98.0); Mean Platelet Volume 6.7 fL (7.4-10.4); Platelet Count 362 thou/uL (130-400); RBC Distribution Width 12.3 % (11.5-14.5); Red Blood Cell (RBC) Count 5.75 mill/uL (4.70-6.10); White Blood Cell (WBC) Count 10.7 thou/uL (4.8-10.8)
[2022-01-30 04:51] LABS: Anion Gap 16 mmol/L (10-20); BUN (Urea Nitrogen) 12 mg/dL (8.9-20.6); Calc. Creatinine Clearance 215 mL/min (70-130); Carbon Dioxide 22 mmol/L (22-29); Chloride 108 mmol/L (98-107); Estimated GFR 111; Glucose 116 mg/dL (70-105); Potassium 3.8 mmol/L (3.5-5.1); Sodium 142 mmol/L (136-145)
[2022-01-30] MEDS: Mometasone 100 MCG/PUFF (1 INHALER) INH SCH ×2 (06:53→18:52)
[2022-01-30] MEDS: Acetaminophen 650 MG Suppository PR PRN (07:44)
[2022-01-30] MEDS ORDERED: Lactated Ringer's 500 ML IV SCH (08:15)
[2022-01-30] MEDS: Lactated Ringer's 1,000 ML IV SCH (10:00)
[2022-01-30] MEDS: Ziprasidone 20 MG CAP PO SCH (10:36)
[2022-01-30] MEDS: NPH, Human Insulin Isophane 300 UNIT/3 ML VIAL SC SCH ×2 (10:37→22:09)
[2022-01-30] MEDS: Aspirin 81 mg Enteric Coated Tablet PO SCH (10:37)
[2022-01-30] MEDS: DULoxetine 60 MG CAP PO SCH (10:37)
[2022-01-30] MEDS ORDERED: Iopamidol-370 76% 500 ML 1 ML ONE (11:43)
[2022-01-30] MEDS: HumaLOG 300 UNITS/3 ML VIAL SC PRN (17:21)
[2022-01-30] MEDS ORDERED: Ondansetron PF 4 MG/2 ML Vial IVP SCH (21:15)
[2022-01-30] MEDS: Atorvastatin Calcium 40 MG TAB PO SCH (22:09)
[2022-01-30] MEDS: DULoxetine 30 MG CAP PO SCH (22:09)
[2022-01-31] MEDS: Lactated Ringer's 1,000 ML IV SCH (00:55)
[2022-01-31 02:17] LABS: Troponin I 0.019 ng/mL (< 0.028)
[2022-01-31 04:35] LABS: #Eosinphils 0.2 thou/uL (0.0-0.7); #Monocytes 1.1 thou/uL (0.11-0.59); #Neutrophils 11.4 thou/uL (1.40-6.50); %Basophils 0.3 % (0.0-1.0); %Eosinophils 1.6 % (0.0-10.0); %Lymphocytes 13.3 % (21.0-51.0); %Monocytes 7.5 % (0.0-10.0); %Neutrophils 77.4 % (42.0-75.0); Hemoglobin 16.5 g/dL (14.0-18.0); Mean Corpuscular HGB CONC 31.3 g/dL (32.0-36.0); Mean Corpuscular Hemoglobin 29.4 pg (27.0-31.0); Mean Corpuscular Volume 94.1 fL (78.0-98.0); Mean Platelet Volume 6.9 fL (7.4-10.4); Platelet Count 408 thou/uL (130-400); RBC Distribution Width 12.4 % (11.5-14.5); Red Blood Cell (RBC) Count 5.61 mill/uL (4.70-6.10); White Blood Cell (WBC) Count 14.8 thou/uL (4.8-10.8)
[2022-01-31 04:59] LABS: Anion Gap 16 mmol/L (10-20); BUN (Urea Nitrogen) 10 mg/dL (8.9-20.6); Calc. Creatinine Clearance 189 mL/min (70-130); Calcium 9.1 mg/dL (7.8-10.44); Carbon Dioxide 18 mmol/L (22-29); Chloride 105 mmol/L (98-107); Estimated GFR 108; Glucose 213 mg/dL (70-105); Sodium 135 mmol/L (136-145)
[2022-01-31] MEDS: HumaLOG 300 UNITS/3 ML VIAL SC PRN ×2 (06:40→16:28)
[2022-01-31] MEDS: Mometasone 100 MCG/PUFF (1 INHALER) INH SCH ×2 (07:25→18:43)
[2022-01-31] MEDS: Ipratropium Bromide 2.5 ml Neb NEB SCH ×4 (07:27→23:04)
[2022-01-31] MEDS: Ziprasidone 20 MG CAP PO SCH (10:22)
[2022-01-31] MEDS: NPH, Human Insulin Isophane 300 UNIT/3 ML VIAL SC SCH ×2 (10:23→21:02)
[2022-01-31] MEDS: Aspirin 81 mg Enteric Coated Tablet PO SCH (10:23)
[2022-01-31] MEDS: DULoxetine 60 MG CAP PO SCH (10:23)
[2022-01-31 14:57] VITALS: BMI 38.2
[2022-01-31] MEDS ORDERED: Lactated Ringer's 1,000 ML IV SCH (19:00)
[2022-01-31] MEDS: DULoxetine 30 MG CAP PO SCH (21:02)
[2022-01-31] MEDS: Atorvastatin Calcium 40 MG TAB PO SCH (21:02)
[2022-02-01 06:47] LABS: #Basophils 0.1 thou/uL (0.0-0.2); #Eosinphils 0.4 thou/uL (0.0-0.7); #Monocytes 0.8 thou/uL (0.11-0.59); #Neutrophils 4.9 thou/uL (1.40-6.50); %Basophils 0.7 % (0.0-1.0); %Eosinophils 5.1 % (0.0-10.0); %Lymphocytes 24.7 % (21.0-51.0); %Monocytes 9.2 % (0.0-10.0); %Neutrophils 60.3 % (42.0-75.0); Hemoglobin 16.3 g/dL (14.0-18.0); Mean Corpuscular HGB CONC 32.2 g/dL (32.0-36.0); Mean Corpuscular Hemoglobin 29.6 pg (27.0-31.0); Mean Platelet Volume 6.7 fL (7.4-10.4); Platelet Count 363 thou/uL (130-400); RBC Distribution Width 12.3 % (11.5-14.5); Red Blood Cell (RBC) Count 5.51 mill/uL (4.70-6.10); White Blood Cell (WBC) Count 8.1 thou/uL (4.8-10.8)
[2022-02-01 06:51] LABS: Anion Gap 13 mmol/L (10-20); BUN (Urea Nitrogen) 9 mg/dL (8.9-20.6); Calc. Creatinine Clearance 190 mL/min (70-130); Calcium 8.9 mg/dL (7.8-10.44); Carbon Dioxide 21 mmol/L (22-29); Chloride 107 mmol/L (98-107); Estimated GFR 112; Glucose 75 mg/dL (70-105); Potassium 3.4 mmol/L (3.5-5.1); Sodium 138 mmol/L (136-145)
[2022-02-01] MEDS: Mometasone 100 MCG/PUFF (1 INHALER) INH SCH ×2 (06:57→18:41)
[2022-02-01] MEDS: Ipratropium Bromide 2.5 ml Neb NEB SCH ×4 (06:59→23:05)
[2022-02-01] MEDS: Aspirin 81 mg Enteric Coated Tablet PO SCH (08:49)
[2022-02-01] MEDS: Ziprasidone 20 MG CAP PO SCH (08:49)
[2022-02-01] MEDS: DULoxetine 60 MG CAP PO SCH (08:49)
[2022-02-01] MEDS: NPH, Human Insulin Isophane 300 UNIT/3 ML VIAL SC SCH ×2 (08:49→21:01)
[2022-02-01] MEDS: HumaLOG 300 UNITS/3 ML VIAL SC PRN (17:21)
[2022-02-01] MEDS: Metoprolol Tartrate 50 MG TAB PO SCH (21:00)
[2022-02-01] MEDS: Atorvastatin Calcium 40 MG TAB PO SCH (21:00)
[2022-02-01] MEDS: DULoxetine 30 MG CAP PO SCH (21:00)
[2022-02-02] MEDS: Ipratropium Bromide 2.5 ml Neb NEB SCH ×3 (06:47→18:43)
[2022-02-02] MEDS: Mometasone 100 MCG/PUFF (1 INHALER) INH SCH ×2 (06:47→18:51)
[2022-02-02] MEDS: Amlodipine 10 MG TAB PO SCH (09:46)
[2022-02-02] MEDS: Metoprolol Tartrate 50 MG TAB PO SCH ×2 (09:46→22:15)
[2022-02-02] MEDS: Docusate 100 MG CAP PO SCH ×2 (09:46→22:15)
[2022-02-02] MEDS: Lisinopril 10 MG TAB PO SCH (09:46)
[2022-02-02] MEDS: DULoxetine 60 MG CAP PO SCH (09:46)
[2022-02-02] MEDS: Aspirin 81 mg Enteric Coated Tablet PO SCH (09:47)
[2022-02-02] MEDS: Ziprasidone 20 MG CAP PO SCH (09:47)
[2022-02-02] MEDS: NPH, Human Insulin Isophane 300 UNIT/3 ML VIAL SC SCH ×2 (09:48→22:17)
[2022-02-02] MEDS: HumaLOG 300 UNITS/3 ML VIAL SC PRN (17:13)
[2022-02-02] MEDS: DULoxetine 30 MG CAP PO SCH (22:15)
[2022-02-02] MEDS: Atorvastatin Calcium 40 MG TAB PO SCH (22:20)
[2022-02-03] MEDS: Ipratropium Bromide 2.5 ml Neb NEB SCH ×3 (00:44→14:03)
[2022-02-03] MEDS: Mometasone 100 MCG/PUFF (1 INHALER) INH SCH (07:32)
[2022-02-03] MEDS: Metoprolol Tartrate 50 MG TAB PO SCH (09:05)
[2022-02-03] MEDS: Aspirin 81 mg Enteric Coated Tablet PO SCH (09:05)
[2022-02-03] MEDS: Docusate 100 MG CAP PO SCH (09:06)
[2022-02-03] MEDS: NPH, Human Insulin Isophane 300 UNIT/3 ML VIAL SC SCH (09:06)
[2022-02-03] MEDS: Ziprasidone 20 MG CAP PO SCH (09:06)
[2022-02-03] MEDS: Amlodipine 10 MG TAB PO SCH (09:06)
[2022-02-03] MEDS: DULoxetine 60 MG CAP PO SCH (09:06)
[2022-02-03] MEDS: Lisinopril 10 MG TAB PO SCH (09:06)
[2022-02-03] MEDS ORDERED: Nitroglycerin 0.4 MG TAB (25 Tab Bottle) SL SCH (11:30)
[2022-02-03] MEDS ORDERED: Nitroglycerin 0.4 MG TAB (25 Tab Bottle) SL PRN ×2 (11:44→11:46)
[2022-02-03] MEDS: HumaLOG 300 UNITS/3 ML VIAL SC PRN (16:24)
[2022-02-03] MEDS ORDERED: metFORMIN 500 MG TAB PO SCH (17:00)
[2022-02-03 18:09] VITALS: BP 101/54
[2022-02-03 18:50] VITALS: TEMP 97.9
[2022-02-03] MEDS ORDERED: NPH, Human Insulin Isophane 300 UNIT/3 ML VIAL SC SCH (21:00)
[2022-02-04] MEDS ORDERED: Potassium Chloride 10 MEQ TAB PO SCH (09:00)
== END 2022-02-03 19:06 | DRG 57 ==
LOC: ERS 19:29 → 2NO 01-28 00:08 → EEVIPCON 01-28 12:46 → OBSVTOIN 01-28 12:46
PROVIDERS: ADMIT Family Medicine; ATTEND Family Medicine
DX: I69.351 Hemiplegia and hemiparesis following cerebral infarction affecting right dominant side (principal); Z20.822 Contact with and (suspected) exposure to COVID-19; I10 Essential (primary) hypertension; J44.9 Chronic obstructive pulmonary disease, unspecified; E78.5 Hyperlipidemia, unspecified; R29.810 Facial weakness; R47.81 Slurred speech; E10.9 Type 1 diabetes mellitus without complications; F39 Unspecified mood [affective] disorder; R13.10 Dysphagia, unspecified; S03.02XA Dislocation of jaw, left side, initial encounter; R13.12 Dysphagia, oropharyngeal phase; M54.12 Radiculopathy, cervical region; E87.6 Hypokalemia; Z88.5 Allergy status to narcotic agent; Z79.899 Other long term (current) drug therapy; Z79.84 Long term (current) use of oral hypoglycemic drugs; Z79.4 Long term (current) use of insulin; I69.322 Dysarthria following cerebral infarction
CPT/HCPCS: 36415; 36416; 70450; 70486; 70496; 70498; 70551; 71045; 71275; 72141; 74230; 80048; 80053; 80061; 83036; 83735; 84443; 84484; 85025; 85610; 85730; 93005; 93010; 93306; 94640; G0378; J1815; J2405; J7120; J7620; Q9967; U0002; U0003; U0005